=== PATIENT | female | born 2000 | race Two or more races ===

== ENCOUNTER 2025-03-30 22:08 | Emergency (ER) | payer MEDICAID, OTHER ==
[~2025-03-30] VITALS: Ht 152.4 cm; Wt 61.6 kg
[2025-03-30 22:11] VITALS: BP 113/85; PULSE 100; RESP 18; TEMP 97.5; O2SAT 98
== END 2025-03-31 00:16 | disposition left against medical advice (07) ==
LOC: ER 22:08
DX: M79.89 Other specified soft tissue disorders (principal); Z53.21 Procedure and treatment not carried out due to patient leaving prior to being seen by health care provider